=== PATIENT | male | born 1960 | race African-American/Black ===

== ENCOUNTER → 2018-02-06 07:20 | Outpatient (CLI) | payer OTHER, SELFPAY ==
--- NOTE | 2018-02-06 07:24 | DI.MRI.S_ITS ---
PROCEDURE: MR LUMBAR SPINE WO/W CON INDICATIONS: continued back/leg pain after spinal surgery laminectomy TECHNIQUE: Noncontrast sagittal T1 spin echo and T2 fast spin echo, sagittal STIR, axial T1 and T2 fast spin echo through the lumbar spine. In cases with scoliosis, additional coronal T2 fast spin echo may be performed. After the administration of contrast, sagittal and axial T1 spin echo with fat saturation through the lumbar spine. COMPARISON: [facility], CR, L-SPINE MINIMUM 4 VIEWS, 11/14/2017, 12:17. [facility], MR, L-SPINE W&WO CONTRAST, 11/18/2017, 13:09. FINDINGS: Image quality: Excellent. Alignment and curvature: There is normal bony alignment. Marrow: Marrow is of normal overall signal. There is increased enhancement in L3-L4 and possibly L4-L5 discs. No acute vertebral body compression fractures. No suspicious marrow enhancement. Spinal cord: Conus medullaris terminates at the L1-L2 level. Visualized spinal cord demonstrates normal signal. There is increased epidural enhancement level of L3-S1. Paraspinous soft tissues: Marked soft tissue edema and ill-defined fluid signal posterior to L3-L5 with increased enhancement. L1-L2: Mild loss of disc height and disc desiccation. There is broad posterior disc bulge. There is posterior and left paramedian disc protrusion. The central canal is severely narrowed. No significant foraminal stenosis. No significant change from the last exam. L2-L3: Mild loss of disc signal with preserved disc height. There is minimal posterior disc bulge. Mild bilateral facet arthropathy. The central canal is moderately narrowed primarily due to short pedicles. Mild bilateral foraminal stenosis. No significant change from the last exam. L3-L4: Laminectomy and posterior decompression. There is interval resection of the extruding disc just below L3-L4. Moderate loss of disc height and disc signal. There is posterior disc bulge and disc osteophyte complex. Moderate bilateral facet arthropathy. The central canal is severely narrowed. Severe bilateral foraminal stenosis. There is increased disc enhancement as well as epidural enhancement. L4-L5: Right hemilaminectomy. Severe loss of disc signal with preserved disc height. There is broad posterior disc bulge and superimposed posterior and right paramedian disc protrusion. Mild bilateral facet arthropathy. The central canal is severely narrowed. Severe bilateral foraminal stenosis. There is increased disc enhancement as well as epidural enhancement. L5-S1: Moderate loss of disc signal with preserved disc height. There is broad posterior disc bulge and a disc osteophyte complex. Mild bilateral facet arthropathy. The central canal is moderately narrowed. Severe bilateral foraminal stenosis. There is increased disc enhancement as well as epidural enhancement. IMPRESSION: 1. Increased disc and epidural space enhancement at level of L3-L4, L4-L5 and L5-S1, highly concerning for postsurgical infection. No drainable epidural fluid collections at this time. 2. Marked soft tissue edema and ill-defined fluid signal posterior to L3-L5 with increased enhancement compatible with post surgical inflammation or infection. 3. Multilevel degenerative disc disease and facet arthropathy as described. 4. Severe central canal stenosis at several levels as described. 5. Severe foraminal stenosis at several levels as described. The result was discussed with Dr. Nelson on 02/06/2018 at 1349 hurs. Dictated by: Britney Stokes M.D. on 02/06/2018 at 10:36 Approved by: Britney Stokes M.D. on 02/06/2018 at 13:49
== END ==
PROVIDERS: Family Provider Specialist; PCP Specialist; Visit Provider Specialist
DX: M54.9 Dorsalgia, unspecified (principal); M79.606 Pain in leg, unspecified; M51.36 Other intervertebral disc degeneration, lumbar region; M47.816 Spondylosis without myelopathy or radiculopathy, lumbar region; M48.061 Spinal stenosis, lumbar region without neurogenic claudication
CPT/HCPCS: 72158; A9579

== ENCOUNTER → 2018-05-29 12:37 | Outpatient (CLI) | payer OTHER, SELFPAY ==
--- NOTE | 2018-05-29 12:41 | DI.RAD.S_ITS ---
PROCEDURE: XR CHEST 2V INDICATIONS: loose persistent cough r/o infiltrate TECHNIQUE: 2 views of the chest were acquired. COMPARISON: [facility], , CHEST 2 VIEW, 05/30/2011, 21:11. FINDINGS: Surgical changes and devices: None. Lungs and pleura: No pleural effusions or pneumothorax. Posterior lower lobe patchy consolidation is seen, best on the lateral view. Mediastinum: Mediastinal contours are normal. Heart size is normal. Bones and chest wall: No suspicious bony abnormalities. Soft tissues appear unremarkable. IMPRESSION: Posterior lower lobe consolidation suggestive of pneumonia versus aspiration. Recommend clinical correlation, and followup chest radiographs to document resolution after treatment and exclude an underlying pulmonary nodule. Dictated by: Paul Randolph M.D. on 05/29/2018 at 13:48 Approved by: Paul Randolph M.D. on 05/29/2018 at 13:53
== END ==
PROVIDERS: Visit Provider Specialist
DX: R05 Cough (principal); J18.9 Pneumonia, unspecified organism
CPT/HCPCS: 71046; 85025

== ENCOUNTER → 2018-05-29 18:31 | Outpatient (CLI) | payer OTHER, SELFPAY ==
[2018-05-29 18:58] LABS: Add Manual Diff / Slide Review NO; Basophils Percent Auto 0.4 % (0-2); Eosinophils Percent Auto 1.9 % (2-4); Hematocrit 40.7 % (41-53); Hemoglobin 13.6 g/dL (13.5-17.5); Lymphocytes Percent Auto 29.9 % (25-40); Mean Corpuscular HGB Conc 33.4 % (30-36); Mean Corpuscular Hemoglobin 29.7 PG (26-34); Mean Corpuscular Volume 88.8 fL (80-100); Monocytes Percent Auto 9.6 % (3-14); Neutrophils Absolute Auto 3500 /uL (3000-5900); Neutrophils Percent Auto 58.2 % (50-75); Platelet Count 163 X10^3/uL (150-400); Red Blood Cell Count 4.58 X10^6/uL (4.5-5.9); Red Cell Distribution Width 15.1 % (11.6-14.8); White Blood Cell Count 5.9 X10^3/uL (4.5-11.0)
== END ==
PROVIDERS: Family Provider Internal Medicine Infectious Disease; PCP Internal Medicine Infectious Disease; Visit Provider Specialist
DX: J18.9 Pneumonia, unspecified organism (principal)
CPT/HCPCS: 85025

== ENCOUNTER → 2018-07-07 16:26 | Outpatient (CLI) | payer OTHER, SELFPAY ==
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
== END ==
PROVIDERS: Family Provider Internal Medicine Infectious Disease; PCP Internal Medicine Infectious Disease; Visit Provider Specialist
DX: M25.572 Pain in left ankle and joints of left foot (principal); M77.32 Calcaneal spur, left foot
CPT/HCPCS: 73610

== ENCOUNTER 2018-10-30 15:15 | Outpatient (RCR) | payer OTHER, SELFPAY ==
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
--- NOTE | 2018-03-18 14:26 | PT.OPPOC ---
Current Diagnoses Other chronic pain (03/13/18) Lumbago with sciatica, right side (03/13/18) Lumbago with sciatica, left side (03/13/18) Weakness (03/13/18) Provider Visit Care Team Role Provider Type Yahaira Resendez MD Family Provider Non-Staff Primary Care Provider Specialty: Medical Address: [address] [place] [address], [id number] [address] Email: Maggie Momin MD Attending Provider Non-Staff Specialty: Neurosurgery Address: [address] [place] [address], [address], [place], [address] Email: Plan Of Care PT-OP-T Assessment and Plan Start: 03/17/18 17:38 Freq: Status: Active Protocol: Document 03/13/18 13:45 [facility] (Rec: 03/17/18 18:04 [facility] [id number]) Physical Therapy Assessment Rehab Potential Rehabilitation Potential Good Evaluation Complexity Number of Personal Factors/Comorbidities 3 or More Number of Body Systems Impaired 4 or More Clinical Presentation at Evaluation Evolving Impairments Impairments Activity Tolerance Functional Activities Functional Mobility Gait Pain Posture ROM Strength Goals Six Impairment lacks HEP, aquatic exercise program Short Term Goal (STG) Instruct in HEP, aquatic exercise program STG Duration 4 wks Senior Care Goal (LTG) Patient to be independent and compliant with HEP and aquatic exercise program for long- term fitness and pain management LTG Duration 3 months Five Impairment Gait instability, requires use of walking stick Short Term Goal (STG) Patient able to walk usual distances without LE's giving way STG Duration 6 wks Film Masker Goal (LTG) Patient able to walk usual distances without use of device without LE's giving way Four Impairment Activity intolerance: pain with all usual activities including ADL's Film Masker Goal (LTG) Patient able to do all usual activities including ADL's and work activities with minimal to no increase in pain LTG Duration 3 months Three Impairment Pain with gait Short Term Goal (STG) Patient able to walk household distances without an increase in STG Duration 6 wks Film Masker Goal (LTG) Patient able to walk community distances without an increase in pain LTG Duration 3 months Two Impairment Oswestery disability score 64% Short Term Goal (STG) Decrease score to no greater than 40% STG Duration 6 wks Senior Care Goal (LTG) Decrease score to no greater than 2% LTG Duration 3 months One Impairment pain level as high as 7/10 Short Term Goal (STG) Patient to report a decrease in pain to no greater than 5/ 10 and with less frequency STG Duration 6 wks Senior Care Goal (LTG) Patient to report decrease in pain to no greater than 2/10 LTG Duration 2 months Assessment Summary Assessment Patient presents with function -limiting pain lumbar spine with radicular symptoms into LE's. Should benefit from PT especially aquatic PT for pain management, strengthening, core stabilization, gait training Physical Therapy Plan Frequency and Duration Frequency of Treatment 2x/Week Therapeutic Interventions Therapeutic Interventions Aquatic Therapy Home Exercise Program Manual Therapy Neuromuscular Re-education Patient/Caregiver Education Self-Care/Home Management Soft Tissue Mobilization Taping Therapeutic Activities Therapeutic Exercises Modalities Cold Pack/Ice Massage Electric Stimulation Hot Packs Ultrasound Next Visit Focus/Plan Next Note Type Treatment Note Next Visit Plan Review HEP, progress ther ex as tolerated for core stabilization and strengthening, LE strengthening, pain and symptom management, manual treatment. Please Sign and Return: I have reviewed this Plan of Care and certify that the skilled therapy services above are required to meet the patient?s needs. Physician Signature Date Printed Name and Credentials Clinical Instructor Signature Printed Name and Credentials
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
--- NOTE | 2018-06-09 16:14 | PT.OPPOC ---
Current Diagnoses Other chronic pain (06/09/18) Lumbago with sciatica, right side (06/09/18) Lumbago with sciatica, left side (06/09/18) Provider Visit Care Team Role Provider Type Yahaira Resendez MD Family Provider Non-Staff Primary Care Provider Specialty: Medical Address: [address] [place] [address], [id number], [place], [address] Email: Maggie Momin MD Attending Provider Non-Staff Specialty: Neurosurgery Address: [address] [place] [address], [id number], [place], [address] Email: Plan Of Care PT-OP-T Assessment and Plan Start: 03/17/18 17:38 Freq: Status: Active Protocol: Document 06/09/18 10:15 SAK (Rec: 06/09/18 16:13 SAK [id number]) Physical Therapy Assessment Goals Six Impairment lacks HEP, aquatic exercise program Short Term Goal (STG) Instruct in HEP, aquatic exercise program (goal met except to issue written program; ongoing progression) STG Duration 4 wks Plate Corrector Goal (LTG) Patient to be independent and compliant with HEP and aquatic exercise program for long- term fitness and pain management (good goal progress ) LTG Duration 3 months Five Impairment Gait instability, requires use of walking stick Short Term Goal (STG) Patient able to walk usual distances without LE's giving way ( goal progress) Retirement Goal (LTG) Patient able to walk usual distances without use of device without LE's giving way (goal progress) LTG Duration 3 months Four Impairment Activity intolerance: pain with all usual activities including ADL's Plate Corrector Goal (LTG) Patient able to do all usual activities including ADL's and work activities with minimal to no increase in pain (good goal progress) LTG Duration 3 months Three Impairment Pain with gait Short Term Goal (STG) Patient able to walk household distances without an increase in pain (goal met) STG Duration 6 wks Plate Corrector Goal (LTG) Patient able to walk community distances without an increase in pain (goal progress) LTG Duration 3 months Two Impairment Oswestery disability score 64% Short Term Goal (STG) Decrease score to no greater than 40% (goal progress) STG Duration 6 wks Plate Corrector Goal (LTG) Decrease score to no greater than 2% (goal progress) LTG Duration 3 months One Impairment pain level as high as 7/10 Short Term Goal (STG) Patient to report a decrease in pain to no greater than 5/ 10 and with less frequency ( goal progress) STG Duration 6 wks Retirement Goal (LTG) Patient to report decrease in pain to no greater than 2/10 ( goal progress) LTG Duration 2 months Assessment Summary Assessment Patient has had a decline in function since last seen 2 weeks ago due to illness of pneumonia. Resumed PT today; eased back into aquatic therapy. Feel over the next month we need to combination land and aquatic PT, then fully to land-based PT. Physical Therapy Plan Frequency and Duration Frequency of Treatment 2x/Week Duration of Treatment 3 months Plan of Care Start Date 06/09/18 Plan of Care End Date 09/09/18 Therapeutic Interventions Therapeutic Interventions Aquatic Therapy Home Exercise Program Manual Therapy Neuromuscular Re-education Patient/Caregiver Education Self-Care/Home Management Soft Tissue Mobilization Taping Therapeutic Activities Therapeutic Exercises Modalities Cold Pack/Ice Massage Electric Stimulation Hot Packs Ultrasound Next Visit Focus/Plan Next Note Type Treatment Note Next Visit Plan Further discuss POC especially transition to land-based PT for further functional retraining and strengthening. Plan of Care Dates Plan of Care Start Date 06/09/18 Plan of Care End Date 09/09/18 Please Sign and Return: I have reviewed this Plan of Care and certify that the skilled therapy services above are required to meet the patient?s needs. Physician Signature Date Printed Name and Credentials Clinical Instructor Signature Printed Name and Credentials
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
--- NOTE | 2018-09-10 16:59 | PT.OPPOC ---
Current Diagnoses Other chronic pain (09/09/18) Lumbago with sciatica, right side (09/09/18) Lumbago with sciatica, left side (09/09/18) Provider Visit Care Team Role Provider Type Yahaira Resendez MD Family Provider Non-Staff Primary Care Provider Specialty: Medical Address: [address] [place] [address], [id number], [place], [address] Email: Maggie Momin MD Attending Provider Non-Staff Specialty: Neurosurgery Address: [address] [place] [address], [address], [place], [address] Email: Plan Of Care PT-OP-T Assessment and Plan Start: 03/17/18 17:38 Freq: Status: Active Protocol: Document 09/09/18 10:33 SAK (Rec: 09/09/18 13:37 [facility] [id number]) Physical Therapy Assessment Goals Six Impairment lacks HEP, aquatic exercise program Short Term Goal (STG) Instruct in HEP, aquatic exercise program (goal met for aquatic PT. Now progressing with land-based ex) STG Duration 4 wks Mastic Sprayer Goal (LTG) Patient to be independent and compliant with HEP and aquatic exercise program for long- term fitness and pain management (good goal progress ) LTG Duration 2 months Five Impairment Gait instability, requires use of walking stick Short Term Goal (STG) Patient able to walk usual distances without LE's giving way ( goal progress) Mastic Sprayer Goal (LTG) Patient able to walk usual distances without use of device without LE's giving way (goal progress) LTG Duration 2 months Four Impairment Activity intolerance: pain with all usual activities including ADL's Mastic Sprayer Goal (LTG) Patient able to do all usual activities including ADL's and work activities with minimal to no increase in pain (good goal progress) LTG Duration 2 months Three Impairment Pain with gait Short Term Goal (STG) Patient able to walk household distances without an increase in pain (goal met) STG Duration 6 wks Detention Goal (LTG) Patient able to walk community distances without an increase in pain (goal progress) LTG Duration 2 months Two Impairment Oswestery disability score 64% Short Term Goal (STG) Decrease score to no greater than 40% (goal progress) STG Duration 6 wks Mastic Sprayer Goal (LTG) Decrease score to no greater than 2% (goal progress) LTG Duration 2 months One Impairment pain level as high as 7/10 Short Term Goal (STG) Patient to report a decrease in pain to no greater than 5/ 10 and with less frequency ( goal progress) STG Duration 6 wks Detention Goal (LTG) Patient to report decrease in pain to no greater than 2/10 ( goal progress) LTG Duration 2 months Progress Towards Goals Progress Towards Goals Progressing Toward Goals Assessment Summary Assessment Tolerated increased exercise, less swelling lumbar area. Continues to progress well, gradually decreasing pain medication use. Frequent cues for alignment and core stabilization with all activities required. Physical Therapy Plan Frequency and Duration Frequency of Treatment 2x/Week Duration of Treatment 2 months Plan of Care Start Date 09/09/18 Plan of Care End Date 11/07/18 Therapeutic Interventions Therapeutic Interventions Aquatic Therapy Home Exercise Program Manual Therapy Neuromuscular Re-education Patient/Caregiver Education Self-Care/Home Management Soft Tissue Mobilization Taping Therapeutic Activities Therapeutic Exercises Modalities Cold Pack/Ice Massage Electric Stimulation Hot Packs Ultrasound Next Visit Focus/Plan Next Note Type Treatment Note Next Visit Plan Progress ther ex and HEP to help patient improve his strength and core stabilization s/p spinal surgery and return him to his previously active lifestyle with minimal pain. Plan of Care Dates Plan of Care Start Date 09/09/18 Plan of Care End Date 11/07/18 Please Sign and Return: I have reviewed this Plan of Care and certify that the skilled therapy services above are required to meet the patient?s needs. Physician Signature Date Printed Name and Credentials Clinical Instructor Signature Printed Name and Credentials
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
== END 2019-04-24 09:02 | disposition home or self-care (01) ==
LOC: PHYS 15:15
PROVIDERS: Family Provider Internal Medicine Infectious Disease; PCP Internal Medicine Infectious Disease; Visit Provider Neurological Surgery
DX: M54.42 Lumbago with sciatica, left side (principal); M54.41 Lumbago with sciatica, right side; G89.29 Other chronic pain
CPT/HCPCS: 97010; 97014; 97032; 97035; 97110; 97113; 97140; 97163; 97535; G0283

== ENCOUNTER → 2018-11-23 14:02 | Outpatient (CLI) | payer OTHER, SELFPAY | PROVIDERS: Family Provider Internal Medicine Infectious Disease; PCP Internal Medicine Infectious Disease; Visit Provider Specialist | DX: R05 Cough (principal) ==

== ENCOUNTER → 2020-01-01 16:23 | Outpatient (CLI) | payer OTHER, SELFPAY ==
[2020-01-01 17:50] LABS: BUN Creatinine Ratio 26.4 (6-22); Blood Urea Nitrogen 37 mg/dL (9-20); Carbon Dioxide 28 mmol/L (22-32); Chloride 88 mmol/L (98-107); Estimated Glomerular Filt Rate 51.7 mL/min (>60); Potassium 4.8 mmol/L (3.4-5.1); Sodium 129 mmol/L (137-145)
[2020-01-01 17:57] LABS: HEMOLYSIS 22 (0-50)
[2020-01-01 18:34] LABS: Appearance Urine UA CLEAR; Bilirubin Urine UA NEGATIVE (NEGATIVE); Color Urine UA YELLOW; Glucose Urine UA 3+ g/dL (Negative); Ketones Urine UA NEGATIVE (NEGATIVE); Leukocyte Esterase Urine UA NEGATIVE (NEGATIVE); Nitrite Urine UA NEGATIVE (Negative); Occult Blood Urine UA TRACE-INTACT (Negative); Protein Urine UA 1+ (Negative); Specific Gravity Urine UA <=1.005 (1.000-1.035); Urobilinogen Urine UA 0.2 E.U./dL (0.2); pH Urine UA 5.5 (4.5-8.0)
[2020-01-01 18:40] LABS: Calcium 9.7 mg/dL (8.4-10.2); Glucose 740 mg/dL (80-110)
[2020-01-01 18:53] LABS: Hemoglobin A1C% w Est Avg Glu 11.8 % (4.0-6.0)
== END ==
PROVIDERS: Family Provider Internal Medicine Infectious Disease; PCP Internal Medicine Infectious Disease; Referring Provider Specialist; Visit Provider Specialist
DX: R35.0 Frequency of micturition (principal); R73.09 Other abnormal glucose
CPT/HCPCS: 36415; 80048; 81003; 83036

== ENCOUNTER → 2020-11-07 09:17 | Outpatient (CLI) | payer OTHER, SELFPAY ==
[2020-11-07 12:21] LABS: COVID19 -Nasal RAPID Negative (Negative)
== END ==
PROVIDERS: Family Provider Internal Medicine Infectious Disease; PCP Internal Medicine Infectious Disease; Visit Provider Specialist
DX: Z20.822 Contact with and (suspected) exposure to COVID-19 (principal)
CPT/HCPCS: 87635; C9803

== ENCOUNTER → 2021-06-22 10:12 | Outpatient (CLI) | payer OTHER, SELFPAY ==
[2021-06-22 12:09] LABS: COVID19 -Nasal RAPID Negative (Negative)
== END ==
PROVIDERS: Family Provider Internal Medicine Infectious Disease; PCP Internal Medicine Infectious Disease; Referring Provider Specialist; Visit Provider Specialist
DX: Z20.822 Contact with and (suspected) exposure to COVID-19 (principal)
CPT/HCPCS: 87635; C9803

== ENCOUNTER → 2024-12-13 14:45 | Outpatient (CLI) | payer MEDICARE, OTHER, SELFPAY ==
--- NOTE | 2024-12-13 14:49 | DI.MRI.S_ITS ---
PROCEDURE: MR LUMBAR SPINE WO CON INDICATIONS: HX LUMBAR LAMINECTOMY,LOW BACK PAIN TECHNIQUE: Noncontrast sagittal T1 spin echo and T2 fast echo, sagittal STIR, and T2 fast spin echo through the lumbar spine. In cases with scoliosis, additional coronal T2 fast spin echo may be performed. COMPARISON: [facility], MR, MR LUMBAR SPINE WO/W CON, 02/06/2018, 7:54. [facility], MR, L-SPINE W&WO CONTRAST, 11/18/2017, 13:09. (Additional prior imaging is not available for review from the archive at the time of this dictation.) FINDINGS: Image quality: Excellent. Alignment and Curvature: There is normal bony alignment. Bone Marrow: Marrow is of normal overall signal. No acute vertebral body compression fractures. Spinal Cord: Conus medullaris terminates at the L1 level. Visualized cord demonstrates normal signal and size. Paraspinous Soft Tissues: No paravertebral masses. T12-L1: Normal appearance. L1-L2: Mild loss of disc height is seen. Loss of disc signal is seen. Mild generalized disc bulge is seen. There is a superimposed central/left disc extrusion seen, with superior migration of the disc material. Mild facet joint hypertrophy is seen. Mild bilateral neural foraminal narrowing is seen. Mild central canal narrowing is seen. The disc extrusion has partially regressed compared to 2018. L2-L3: The disc height and disk signal are well-preserved. Moderate generalized disc bulge is seen. There is a superimposed central disc protrusion. Mild facet joint hypertrophy is seen. Mild to moderate bilateral neural foraminal narrowing is seen. Moderate central canal narrowing is seen. There is mild progression compared to 2018. L3-L4: [id number] loss of disc height and disc signal can be seen. Moderate disc bulge is seen, with a mild central disc extrusion. Moderate facet joint hypertrophy is seen. Prior postoperative change can be seen, with removal of portions of the posterior elements. There is moderate to severe bilateral neural foraminal narrowing seen, with an associated degree of compression seen upon the exiting nerve roots. Moderate to severe central canal narrowing is seen, as on series 6, image 11. This disc level is worse than in 2018. L4-L5: Moderate loss of disc height is seen. Loss of disc signal is seen. Reactive marrow endplate changes are seen, which demonstrate mixed T1 weighted and T2-weighted signal, and are attributed to a combination of edema and fatty metaplasia (Modic type I and Modic type II changes). Moderate generalized disc bulge is seen. There is a central disc extrusion. Moderate facet joint hypertrophy is seen. There is at least moderate left-sided and moderate to severe right-sided neural foraminal narrowing. There is a degree of compression seen upon the exiting nerve roots. Moderate central canal narrowing is seen. There is mild progression of degenerative change compared to 2018. L5-S1: Moderate loss of disc height is seen. Loss of disc signal is seen. Reactive marrow endplate changes are seen, which are hyperintense on T1-weighted and T2-weighted imaging and most consistent with fatty metaplasia (Modic type II changes). Moderate generalized disc bulge is seen. There is a superimposed central disc osteophyte protrusion. Mild facet joint hypertrophy is seen. There is moderate to severe bilateral neural foraminal narrowing seen, with an associated degree of compression seen upon the exiting nerve roots. Moderate central canal narrowing is seen. When comparison is made with the prior images, these findings are similar. IMPRESSION: Multiple levels of lumbar spine degenerative change can be seen, which are worst inferiorly. The degenerative changes at L3-L4 and L4-L5 are mildly progressed compared to the 2018 images. Dictated by: Danilo Harris M.D. on 12/14/2024 at 12:32 Approved by: Danilo Harris M.D. on 12/14/2024 at 12:38
== END ==
PROVIDERS: Family Provider Internal Medicine Infectious Disease; Visit Provider Internal Medicine Infectious Disease
DX: M47.816 Spondylosis without myelopathy or radiculopathy, lumbar region (principal); M47.817 Spondylosis without myelopathy or radiculopathy, lumbosacral region; M54.50 Low back pain, unspecified; Z98.890 Other specified postprocedural states
CPT/HCPCS: 72148